=== PATIENT | male | born 1975 | race Caucasian/White ===

== ENCOUNTER 2017-05-14 11:45 | Emergency (ER) | payer MEDICAID ==
[2017-05-14 11:51] VITALS: BP 147/88
== END 2017-05-14 13:50 | disposition home or self-care (01) ==
LOC: ED 11:45
DX: S61.411A Laceration without foreign body of right hand, initial encounter (principal); W25.XXXA Contact with sharp glass, initial encounter; Y93.89 Activity, other specified; Y92.89 Other specified places as the place of occurrence of the external cause; Y99.8 Other external cause status
CPT/HCPCS: 90715; J0690; J1885; Q0092

== ENCOUNTER 2018-11-18 20:45 | Emergency (ER) | payer MEDICAID ==
[~2018-11-18] VITALS: Ht 162.6 cm; Wt 94.8 kg
[2018-11-18 21:09] VITALS: Ht 162.6 cm; Wt 94.8 kg
[2018-11-18 23:01] VITALS: BP 126/77
== END 2018-11-18 23:01 | disposition home or self-care (01) ==
LOC: ED 20:45
DX: H10.022 Other mucopurulent conjunctivitis, left eye (principal); L29.9 Pruritus, unspecified

== ENCOUNTER 2020-04-27 18:13 | Emergency (ER) | payer MEDICAID ==
[~2020-04-27] VITALS: Ht 170.2 cm; Wt 98.4 kg
[2020-04-27 18:19] VITALS: Ht 170.2 cm; Wt 98.4 kg
[2020-04-27 20:09] VITALS: BP 158/92
== END 2020-04-27 20:09 | disposition home or self-care (01) ==
LOC: ED 18:13
DX: S05.01XA Injury of conjunctiva and corneal abrasion without foreign body, right eye, initial encounter (principal); X58.XXXA Exposure to other specified factors, initial encounter; Y93.89 Activity, other specified; Y92.89 Other specified places as the place of occurrence of the external cause; Y99.8 Other external cause status